=== PATIENT | male | born 1960 | race Caucasian/White ===

== ENCOUNTER 2025-05-15 07:22 | Outpatient (OUT) | payer OTHER, SELFPAY ==
--- OUTSIDE RECORDS SUMMARY | 2024-03-29 10:10 | XMS_ITS ---
Author Organization [facility] in [place] Address [address] [place] [address] Care Team Providers Care Christian Counselor Name Role Phone Kusum PIMENTEL, John Primary Care Provider Dario Rodríguez [phone] REASON FOR VISIT 1 year follow up with PSA - psa done in november with pcp at [facility] Encounters Encounter Location Date Provider Diagnosis Urology [facility] [address] [address] 03/29/2024 Dario Finch Plan Of Treatment No Information Progress Notes * Celso BETHEA JrDOB:1959 (65 yo M)Acc No.[id number]:03/29/2024 UNLOCKED PROGRESS NOTE Patient: Celso GREEN Jr Provider: David Finch MD :1960 A ge:63 Y S ex:Male Date:03/29/2024 [address] [facility] Pcp:John Noe MD Subjective: * Chief Complaints: * 1 . 1 year follow up with PSA - psa done in november with pcp at [facility]. * Medical History: Objective: * Vitals: Assessment: Plan: * Treatment: * * Electronic signature of Naresh Finch MD, [id number] on 05/15/2025 at 07:27 AM EDT Sign off status: Pending Visit Status: R /S By O/P (Rescheduled by Office/Provider) * Provider: David Finch MD Date: 0 03/29/2024 Generated for Yaneth jesus/Enoch/Isabel on: 0 05/15/2025 07:27 AM EDT
--- OUTSIDE RECORDS SUMMARY | 2025-05-15 07:28 | XMS_ITS | Patient Health Record ---
Author Organization [facility] in [place] Address [address] [place] [address] Care Team Providers Care Regulatory Affairs Intern Name Role Phone John Noe MD Primary Care Provider Unavailabl e Allergies No Known Allergies Reason For Referral No Information Medications Medication SIG (Take, Route, Frequency, Duration) Notes Start Date End Date Status Finasteride 5 MG TAKE 1 TABLET BY COREY TH EVERY DAY; Duration: 90 Not-Taki ng Lisinopril Not-Takin g Tadalafil 10 MG 1 tablet Orally Carline y as needed 45 minutes before sex; Duration: 90 days 02/02/2020 Active Vitamin B12 Active Vitamin D3 Active COVID-19 mRNA Vacc (Moderna) Not-Taking Ezetimibe 10 MG TAKE 1 TABLET BY COREY TH EVERY DAY Oral; Duration: 90 Days Active Losartan Potassium A ctive Pantoprazole Sodium Active Rosuvastatin Calcium Active Social History Tobacco Use: Social History Observation Description Date Details (start date - stop date) Never Smoker NA - NA Tobacco Use/Smoking Question Answer Notes Patient is a nonsmoker Alcohol Screen (Audit-C) Question Answer Notes Did you have a drink containing alcohol in the p ast year? Yes How often did you have a dri nk containing alcohol in the past year? Weekly (3 points) Points 3 Interpretation Negative Problems Problem Type SNOMED Code ICD Code Onset Dates Problem Status W/U Status Risk Notes Problem Elevated PSA (984967774) Elevated prostate specific antigen [PSA] (R97.2) Active confirmed Problem Erectile dysfunction (disorder) (267264979) Erectile dysfunction, unspecified erectile dysfunction type (N52.9) Active confirmed Problem Lower urinary tract symptoms due to benign prostatic hypertrophy (52470251431140) Benign prostatic hyperplasia with lower urinary tract symptoms, symptom details unspecified (N40.1) Active confirmed Plan Of Treatment Pending Test Test Name Order Date PSA, PROSTATE-SPECIFIC ANTIGEN 0 MRI PROSTATE W/ + W/O CONTRAST 4 Future Test Test Name Order Date PSA, TOTAL 02/24/2024 Insurance Providers Payer Name Payer Address Payer Phone Subscriber Number Group Number Insured Name Patient Relationship to Insured Coverage Start Date Coverage End Date [facility] [address] [address] [place] [phone] [id number] Celso Bethea Self - patient is the insured Medical (General) History Medical History History ICD Code Elevated prostate specific antigen [PSA] R97.2 Enlarged prostate without lower urinary tract symptoms N40.0 Arthritis Hyperlipidemia Hypertension GERD Surgical History Surgery Date(Month/Year) Prostate Needle Biopsy 2014 Vasectomy 2000 Knee Arthroscopy, Left 2018 heart cath
--- OUTSIDE RECORDS SUMMARY | 2025-05-15 07:28 | XMS_ITS | Clinical Summary ---
Author Organization [facility] Address [address] [place] [address] Care Team Providers Care Urologist Md Name Role Phone Unavailable Primary Care Provider Unavailabl e Social History Tobacco Use Types Packs/Day Years Used Date Smoking Tobacco: Never Assessed Sex and Gender Information Value Date Recorded Sex Assigned at Not on file Legal Sex Male 9:50 PM EDT Gender Identity Not on file Sexual Orientation Not on file Last Filed Vital Signs Vital Sign Reading Time Taken Comments Blood Pressure - - Pulse - - Temperature - - Respiratory Rate - - Oxygen Saturation - - Inhaled Oxygen Concentration - - Weight 107 kg (235 lb) 08/01/2019 12:00 PM EST Height 177.8 cm (5' 10 ) 08/01/2019 12:00 PM EST Body Mass Index 33.72 08/01/2019 12:00 PM EST Plan of Treatment Health Maintenance Due Date Last Done Comments CT Colonography 1960 FIT-DNA 1960 FIT 1960 FOBT 1960 Sigmoidoscopy 1960 Colonoscopy 08/08/2023 08/08/2013 Colorectal Cancer Screening 08/08/2023 Influenza Vaccine (#1) 2025 08/07/2022
--- OUTSIDE RECORDS SUMMARY | 2025-05-15 07:28 | XMS_ITS | Clinical Summary ---
Author Organization [facility] Address [address], [address] [place] [address] Care Team Providers Care Manager Of Environmental Services Name Role Phone John Noe MD Primary Care Provider [phone] Allergies No known active allergies Medications atorvastatin (LIPITOR) 40 MG tablet Take 40 mg by mouth daily Active lisinopril (PRINIVIL;ZESTRI L) 20 MG tablet Take 20 mg by mouth daily Active meloxicam (MOBIC) 15 MG tablet Take 15 mg by mouth daily Active aspirin 81 MG chewable tablet Take 81 mg by mouth daily Active famotidine (PEPCID) 20 MG tablet Take 20 mg by mouth 2 times daily Active [place]-3 Fatty Acids (FISH OIL) 1200 MG CAPS Take by mouth Active naproxen sodium (ALEVE) 220 MG tablet Take 220 mg by mouth 2 times daily (with meals) Active Active Problems No known active problems Family History Medical History Relation Name Comments Heart Attack Father at age 40 Relation Name Status Comments Father Mother Alive Social History Tobacco Use Types Packs/Day Years Used Date Smoking Tobacco: Former Cigarettes Q uit: 08/16/1999 Smokeless Tobacco: Never Alcohol Use Standard Drinks/Week Comments Yes 0 (1 standard drink = 0.6 oz pur e alcohol) social, few times a week Sex and Gender Information Value Date Recorded Sex Assigned at Not on file Legal Sex Male 3:26 PM EST Gender Identity Not on file Sexual Orientation Not on file Last Filed Vital Signs Vital Sign Reading Time Taken Comments Blood Pressure 131/85 11/19/2017 10:38 AM EDT Pulse 82 11/19/2017 10:38 AM EDT Temperature 36.2 C (97.2 F) 11/19/2017 10:10 AM EDT Respiratory Rate 16 11/19/2017 10:38 AM EDT Oxygen Saturation 100% 11/19/2017 10:10 AM EDT Inhaled Oxygen Concentration - - Weight 99.8 kg (220 lb) 03/26/2018 10:54 AM EDT Height 177.8 cm (5' 10 ) 03/26/2018 10:54 AM EDT Body Mass Index 31.57 03/26/2018 10:54 AM EDT Plan of Treatment Not on file Insurance [facility] Care Teams Manager Of Environmental Services Relationship Specialty [place] [address] [place] [address] PCP - General Family Medicine 11/04/17
--- OUTSIDE RECORDS SUMMARY | 2025-05-15 07:28 | XMS_ITS | Encounter Summary ---
Author Organization [employer] [facility] [employer] Address [id number] [place] [address] Care Team Providers Care Bpm Developer Name Role Phone John Noe MD Primary Care Provider [phone] Encounter Details Date Type Department Care Team (Late st Contact Info) Description 08/12/2021 Orders Only [facility] [address] [place] [id number] External, Scanning Provider Social History Tobacco Use Types Packs/Day Years Used Date Smoking Tobacco: Never Assessed Childcare Answer Date Recorded Childcare Unknown 01/26/2019 Employment Answer Date Recorded Employment Unknown 01/26/2019 Purpose - Life Answer Date Recorded Purpose and direction in life Unknown Sex and Gender Information Value Date Recorded Sex Assigned at Not on file Legal Sex Male 11:56 AM EDT Gender Identity Not on file Sexual Orientation Not on file documented as of this encounter Plan of Treatment Not on file documented as of this encounter Procedures Procedure Name Priority Date/Time Associated Diagnosis Comments STRESS TEST (EXERCISE ONLY) Routine 08/05/2021 MULTIPLE LABS Routine 06/28/2021 LIPID PROFILE Routine 06/28/2021 documented in this encounter Results * Stress test (exercise only) (08/05/2021) Anatomical Region Laterality Modality Chest N/A Other us Scanning Provider External CV STRESS ORDERABLES Final Result * Lipid profile (06/28/2021) External Cholesterol 249 MANUALLY TRANSCRIBED RESULTS External Cholesterol:Hdl 5.6 MANUALLY TRANSCRIBED RESULTS External Hdl Cholesterol 44 MANUALLY TRANSCRIBED RESULTS External Ldl (Calc) 170 MANUALLY TRANSCRIBED RESULTS External Triglycerides 172 MANUALLY TRANSCRIBED RESULTS External Very Low Lipoprotein 34 MANUALLY TRANSCRIBED RESULTS us Scanning Provider External LAB BLOOD ORDERABLES Edited Result - Final MANUALLY TRANSCRIBED RESULTS * Multiple labs (06/28/2021) us Scanning Provider External MD IMAGING Final Result MANUALLY TRANSCRIBED RESULTS documented in this encounter Visit Diagnoses Not on filedocumented in this encounter Additional Health Concerns Infection Onset Date Last Indicated Resolved Time COVID-19 Positive 08/23/2021 08/23/2021 09/13/2021 11:12 PM EST documented as of this encounter Care Teams Bpm Developer Relationship Specialty [place] [address] [facility] [address] [place] [address] PCP - General Family Medicine 10/08/18 documented as of this encounter
--- OUTSIDE RECORDS SUMMARY | 2025-05-15 07:28 | XMS_ITS | Clinical Summary ---
Author Organization [employer] Address [id number] [address] [place] [address] Care Team Providers Care Oncology Coordinator Name Role Phone John Noe MD Primary Care Provider [phone] Allergies No known active allergies Medications pantoprazole (PROTONIX) 40 mg EC tablet Take 1 tablet (40 mg total) by mouth every morning before breakfast. 08/05/2021 Active rosuvastatin (CRESTOR) 20 mg tablet Take 1 tablet (20 mg total) by mouth in the morning. 07/02/2021 Active losartan (COZAAR) 50 mg tablet Take 1 tablet (50 mg total) by mouth daily. 90 tablet 3 08/22/2021 Active ferrous sulfate (IRON ORAL) Take 30 mg by mouth daily. Active cyanocobalamin 500 MCG tablet Take 1 tablet (500 mcg total) by mouth in the morning. Active cholecalciferol , vitamin D3, 2,000 units capsule Take 1 capsule (2,000 Units total) by mouth in the morning. 50 MCG. Active ezetimibe (ZETIA) 10 mg tablet Take 1 tablet (10 mg total) by mouth in the morning. 02/10/2022 Active saw palmetto 450 mg capsule Take by mouth. Active Active Problems Problem Noted Date Diagnosed Date Essential hypertension 01/15/2023 ASCVD (arteriosclerotic cardiovascular disease) 01/15/2023 Dyslipidemia 01/15/2023 Colon cancer screening 06/12/2022 Overview (06/12/2022): Added automatically from request for surgery [id number] Obesity (BMI 30-39.9) 10/21/2021 Familial hypercholesterolemia 08/22/2021 Primary hypertension 08/22/2021 Abnormal stress ECG with treadmill 08/22/2021 Family history of ASCVD 08/22/2021 Family history of sudden cardiac in father 08/22/2021 Overview (08/22/2021): Age 40, September 04, 1949 Anginal equivalent 08/22/2021 Resolved Problems Problem Noted Date Diagnosed Date Resolved Date Shortness of breath 08/22/2021 07/18/20 22 Family History Medical History Relation Name Comments Early Father age 40-massive [place] Heart disease Father Arthritis Mother Anesthesia problems Neg Hx Relation Name Status Comments Father Mother Alive Social History Tobacco Use Types Packs/Day Years Used Date Smoking Tobacco: Former Cigarettes Q uit: 1998 Smokeless Tobacco: Never Tobacco Cessation:Counseling Given: Not Answered Comments:Smoked for about 20 years Alcohol Use Standard Drinks/Week Comments Yes 0 (1 standard drink = 0.6 oz pur e alcohol) 1 case of beer weekly Childcare Answer Date Recorded Childcare Unknown 01/26/2019 Employment Answer Date Recorded Employment Unknown 01/26/2019 Hunger Screening Answer Date Recorded Within the past 12 months we worried whether our food would run out before we got money to buy more. Never True 01/15/2023 Within the past 12 months th e food we bought just didn't last and we didn't have money to get more. Never True 01/15/2023 Purpose - Life Answer Date Recorded Purpose and direction in life Unknown Sex and Gender Information Value Date Recorded Sex Assigned at Not on file Legal Sex Male 11:56 AM EDT Gender Identity Not on file Sexual Orientation Not on file Last Filed Vital Signs Vital Sign Reading Time Taken Comments Blood Pressure 132/82 01/15/2023 11:27 AM EDT Pulse 86 01/15/2023 11:27 AM EDT Temperature 36.8 C (98.2 F) 07/23/2022 11:50 AM EST Respiratory Rate 14 07/23/2022 11:5 0 AM EST Oxygen Saturation 97% 01/15/2023 11: 27 AM EDT Inhaled Oxygen Concentration - - Weight 107.1 kg (236 lb 3.2 oz) 023 11:27 AM EDT Height 177.8 cm (5' 10 ) 01/15/2023 11: 27 AM EDT Body Mass Index 33.89 01/15/2023 11:27 AM EDT Plan of Treatment Health Maintenance Due Date Last Done Comments Statin Use: Cardiovascular 1962 Depression Screening 1974 Tobacco Screening 1974 DTaP,Tdap and Td Vaccines (1 - Tdap) 1981 Zoster (Shingles) Vaccine (1 of 2) 2012 Adult BMI Screening 01/16/2024 01/15/2023 COVID-19 Vaccine (5 - 2024-2 6 season) 2025 05/09/2022, 07/10/2021, 11/27/2020, Additional history exists Influenza Vaccine 2025 06/16/2023, 08/07/2022 Colonoscopy 07/23/2032 07/23/2022, 07/23/2022 Medical Devices Not on file Procedures Procedure Name Priority Date/Time Associated Diagnosis Comments COLONOSCOPY 07/23/2022 10:35 AM EST from Last 3 Months or Most Recently Relevant to Health Maintenance Results * Colonoscopy (07/23/2022 10:35 AM EST) 07/23/2022 10:3 5 AM EST Narrative PM CARDIOVASCULAR - 07/23/2022 10:55 AM EST [facility] Patient Name: Celso Bethea Procedure Date No Time: 07/23/2022 CSN: [id number] Date of : 1960 Admit Type: Outpatient Age: 62 Room: [place] [address] Gender: Male Note Status: Finalized Attending MD: Reilly Ríos MD Procedure: Colonoscopy Indications: Screening for colorectal malignant neoplasm, Last colonoscopy 10 years ago Providers: Reilly Ríos MD Referring MD: Reilly Ríos MD, John Noe Requesting Provider: Complications: No immediate complications. Procedure: After I obtained informed consent, the scope was passed under direct vision. Throughout the procedure, the patient's blood pressure, pulse, and oxygen saturations were monitored continuously. The Colonoscope was introduced through the anus and advanced to the cecum, identified by appendiceal orifice and ileocecal valve. The entire colon was examined. The colonoscopy was performed without difficulty. The patient tolerated the procedure well. The quality of the bowel preparation was excellent. The total duration of the procedure was 18 minutes. Findings: Scattered diverticula were found in the sigmoid colon. The exam was otherwise without abnormality. Estimated Blood Loss: Estimated blood loss: none. Impression: - Mild diverticulosis in the sigmoid colon. - The examination was otherwise normal. - No specimens collected. Recommendation: - Discharge patient to home. - Written discharge instructions were provided to the patient. - Repeat colonoscopy in 10 years for screening purposes. MD Reilly Moon MD 07/23/2022 10:55:23 AM This report has been signed electronically. Reilly Ríos MD Number of Addenda: 0 Note Initiated On: 07/23/2022 10:35 AM Diagnosis Code(s): --- Professional --- Z12.11, Encounter for screening for malignant neoplasm of colon K57.30, Diverticulosis of large intestine without perforation or abscess without bleeding Procedure Note Reilly Ríos MD - 07/23/2022 [facility] Patient Name: Celso Bethea Procedure Date No Time: 07/23/2022 [facility]: [id number] Date of : 1960 Admit Type: Outpatient Age: 62 Room: [place] [address] Gender: Male Note Status: Finalized Attending MD: Reilly Ríos MD Procedure: Colonoscopy Indications: Screening for colorectal malignant neoplasm, Last colonoscopy 10 years ago Providers: Reilly Ríos MD Referring MD: Reilly Ríos MD, Johnlaz Noe Requesting Provider: Complications: No immediate complications. Procedure: After I obtained informed consent, the scope was passed under direct vision. Throughout theprocedure, the patient's blood pressure, pulse, and oxygen saturations were monitored continuously. The Colonoscope was introduced through the anus and advanced to the cecum, identified by appendiceal orifice and ileocecal valve. The entire colon was examined. The colonoscopy was performed without difficulty. The patient tolerated the procedurewell. The quality of the bowel preparation was excellent. The total duration of the procedure was 18minutes. Findings: Scattered diverticula were found in the sigmoid colon. The exam was otherwise without abnormality. Estimated Blood Loss: Estimated blood loss: none. Impression: - Mild diverticulosis in the sigmoid colon. - The examination was otherwise normal. - No specimens collected. Recommendation: - Discharge patient to home. - Written discharge instructions were provided tothe patient. - Repeat colonoscopy in 10 years for screening purposes. MD Reilly Moon MD 07/23/2022 10:55:23 AM This report has been signed electronically. Reilly Ríos MD Number of Addenda: 0 Note Initiated On: 07/23/2022 10:35 AM Diagnosis Code(s): --- Professional --- Z12.11, Encounter for screening for malignantneoplasm of colon K57.30, Diverticulosis of large intestine without perforation or abscess without bleeding us Reilly Ríos MD GI PROCEDURE ORDERABLES Final R esult PM CARDIOVASCULAR from Last 3 Months or Most Recently Relevant to Health Maintenance Insurance [facility] Care Teams Oncology Coordinator Relationship Specialty [place] [address] [place] [address] PCP - General Family Medicine 10/08/18
--- OUTSIDE RECORDS SUMMARY | 2025-05-15 07:28 | XMS_ITS | Encounter Summary ---
Author Organization [employer] Address [id number] [address] [place] [address] Care Team Providers Care Wire Lather Name Role Phone John Noe MD Primary Care Provider [phone] Encounter Details Date Type Department Care Team (Late st Contact Info) Description 08/27/2021 Telephone [facility] [address] [place] [id number] Anjali Bennett, NATE Social History Tobacco Use Types Packs/Day Years Used Date Smoking Tobacco: Former Smokeless Tobacco: Never Alcohol Use Standard Drinks/Week Comments Yes 0 (1 standard drink = 0.6 oz pur e alcohol) Childcare Answer Date Recorded Childcare Unknown 01/26/2019 Employment Answer Date Recorded Employment Unknown 01/26/2019 Purpose - Life Answer Date Recorded Purpose and direction in life Unknown Sex and Gender Information Value Date Recorded Sex Assigned at Not on file Legal Sex Male 11:56 AM EDT Gender Identity Not on file Sexual Orientation Not on file COVID-19 Exposure Response Date Recorded In the last month, have you been in contact with someone who was confirmed or suspected to have Coronavirus / COVID-19? No / Unsure 08/23/2021 7:49 AM EST documented as of this encounter Miscellaneous Notes * Telephone Encounter - Anjali Bennett RN - 08/27/2021 10:22 AM EST Please address pt note> thx slm I started taking the medication you prescribed (Imdur & Cozaar) on Thursday morning 1/7 and have been experiencing migraine headaches, nausea, and dizziness. Initially thought it was a reaction to the sedative given for the heart cath. The heart cath resulted in no stents, found was LAD mild diffuse disease, minimal disease in Left urc and the left main and RCA were normal. I would like to discontinue the use of the 2 new drugs and to return to the Lisinopril to avoid the debilitating side effects I am experiencing on the new drugs. I would greatly appreciate a change in medication prior nicholas appointment on 09/03. * Telephone Encounter - Samantha Cabrera MD - 08/27/2021 10:22 AM EST Stop imdur which is likely culprit. * Telephone Encounter - Anjali Bennett RN - 08/27/2021 10:22 AM EST Called pt ok to stop the Imdur. slm documented in this encounter Plan of Treatment Not on file documented as of this encounter Visit Diagnoses Not on filedocumented in this encounter Additional Health Concerns Infection Onset Date Last Indicated Resolved Time COVID-19 Positive 08/23/2021 08/23/2021 09/13/2021 11:12 PM EST documented as of this encounter Care Teams Wire Lather Relationship Specialty [place] [address] [facility] [address] [place] [address] PCP - General Family Medicine 10/08/18 documented as of this encounter
--- OUTSIDE RECORDS SUMMARY | 2025-05-15 07:28 | XMS_ITS | Encounter Summary ---
Author Organization [employer] Address [facility] [id number] [address] [place] [address] Care Team Providers Care Gas Scrubber Operator Name Role Phone John Noe MD Primary Care Provider [phone] Encounter Details Date Type Department Care Team (Late st Contact Info) Description 06/10/2022 Telephone [facility] [address] [address] Kathi Reardon Social History Tobacco Use Types Packs/Day Years [...] on file documented as of this encounter Miscellaneous Notes * Telephone Encounter - Kathi Rome - 06/10/2022 9:39 AM EDT Received e-mailed OAC Interest Form. Called patient, filled out a consent and it was given to Cleo. documented in this encounter Plan of Treatment Not on file documented as of this encounter Visit Diagnoses Not on filedocumented in this encounter Care Teams Gas Scrubber Operator Relationship Specialty [place] [address] [place] [address] PCP - General Family Medicine 10/08/18 documented as of this encounter
--- NOTE | 2025-05-15 09:12 | MR_ITS ---
[place] [id number] Patient Name: ANURAG HUANG MRN: [id number] date: 1960 Sex: M Assigned Patient Location: MRI Current Patient Location: MRI Accession/Order Number: [id number] Exam Date: 05/15/2025 09:15 Report Date: 05/15/2025 13:13 At the request of: KLAUDIA LANDRY DO Procedure: MR knee RT wo con EXAMINATION: MRI OF THE RIGHT KNEE CLINICAL DATA: Medial right knee pain. COMPARISON: none TECHNIQUE: Multiecho, multiplanar imaging was performed with use of an extremity coil. No contrast was administered. FINDINGS: Joint:Minimal joint effusion. No Monge's cyst. Bone marrow edema is seen involving the medial femoral condyle as well as the medial aspect of the tibial plateau without fracture. Mild joint spurring. Soft tissues: Normal Quadriceps/Patellar tendon/retinaculum: Normal Muscles: Normal ACL:Normal PCL:Normal Medial Meniscus:Complex tear involving the posterior horn extending into the body with meniscocapsular separation. Lateral Meniscus:Normal MCL:Grade 1 MCL sprain LCL complex: Normal MR/MR knee RT wo con IMPRESSION: COMPLEX TEAR POSTERIOR HORN MEDIAL MENISCUS EXTENDING INTO THE BODY WITH MENISCOCAPSULAR SEPARATION. THERE IS ASSOCIATED BONE MARROW EDEMA INVOLVING THE MEDIAL CONDYLE OF THE FEMUR WELL MEDIAL ASPECT OF THE TIBIAL PLATEAU. GRADE 1 SPRAIN MCL. MINIMAL JOINT EFFUSION. Impression dictated by: Ronny Horan Jr., D.O. 05/15/2025 1:13 PM Dictation Location: [place] [address] Electronically authenticated by: [id number] Y Date: 05/15/2025 13:13
== END 2025-05-15 07:23 | disposition home or self-care (01) ==
PROVIDERS: PCP Family Medicine; Visit Provider Orthopaedic Surgery Orthopaedic Trauma
DX: S83.241A Other tear of medial meniscus, current injury, right knee, initial encounter (principal); M17.11 Unilateral primary osteoarthritis, right knee; S83.231A Complex tear of medial meniscus, current injury, right knee, initial encounter; M25.461 Effusion, right knee
CPT/HCPCS: 73721